=== PATIENT | male | born 1995 | race Caucasian/White ===

== ENCOUNTER → 2019-10-26 | Outpatient (CLI) | payer OTHER ==
--- NOTE | 2019-10-26 15:13 | US ---
EXAMINATION TYPE: US liver DATE OF EXAM: 10/26/2019 COMPARISON: NONE CLINICAL HISTORY: R94.5 Abnormal liver function test. EXAM MEASUREMENTS: Liver Length: 18.5 cm Gallbladder Wall: 0.2 cm CBD: 0.4 cm Right Kidney: 12.9 x 5.2 x 6.3 cm Morbidly obese patient, technically difficult study. Pancreas: Obscured by bowel gas Liver: heterogeneous, enlarged, increased attenuation, decreased visualization of vessels suggestive of fatty infiltrate. This limits evaluation for hepatic masses. There is geographic probable focal f atty sparing adjacent to gallbladder Gallbladder: wnl Evidence for sonographic Saha's sign: No CBD: wnl Right Kidney: Upper limits of normal size. No hydronephrosis or nephrolithiasis. IMPRESSION: 1. Sonographic findings most commonly related to hepatic steatosis. This appears at least moderate de gree. Correlate with liver function test results. 2. Obscuration of the pancreas by overlying bowel gas.
== END | disposition home or self-care (01) ==
LOC: RADUSWWP 12:19
PROVIDERS: ATTEND Internal Medicine
DX: K76.0 Fatty (change of) liver, not elsewhere classified (principal); R14.3 Flatulence
CPT/HCPCS: 76705